=== PATIENT | male | born 1990 | race Caucasian/White ===

== ENCOUNTER → 2016-07-24 | Outpatient (REF) ==
--- NOTE | 2016-07-24 20:54 | REP ---
Clinical: Pain and disability. Technique: AP, lateral, coned-down views. Findings: Alignment and lordosis maintained. Vertebral bodies are intact. There is no evidence for acute fracture / compression injury or subluxation. Chronic spondylolysis and L5 cannot be excluded without associated spondylolisthesis. Impression: L5 spondylolysis cannot be excluded. Otherwise normal examination. Signed by Loy Flores MD 07/24/2016 08:42 P
== END | disposition home or self-care (01) ==
LOC: M SMT 14:00
PROVIDERS: ATTEND Internal Medicine
DX: Z02.71 Encounter for disability determination (principal)

== ENCOUNTER → 2017-02-27 | Outpatient (REF) ==
--- NOTE | 2017-02-27 11:21 | REP ---
LUMBAR SPINE, THREE VIEWS: HISTORY: Degenerative disc disease. COMPARISON: 07/24/2016 There is no acute fracture or subluxation. The L4-5 intervertebral disc is decreased in height consistent with disc degeneration. There are possible L4 pars defects. IMPRESSION: Degenerative change, as described above. Limited CT of the lumbar spine may be helpful for further evaluation. Signed by Rory Graham MD 02/27/2017 11:25 A
== END ==
LOC: M SMT 10:21
PROVIDERS: ATTEND Internal Medicine
DX: M54.5 Low back pain (principal)

== ENCOUNTER → 2023-08-20 | Outpatient (REF) | LOC: M PLAIMG 11:53 | PROVIDERS: ATTEND Internal Medicine | DX: R52 Pain, unspecified (principal) ==